=== PATIENT | female | born 1960 | race Caucasian/White ===

== ENCOUNTER 2020-07-05 04:04 | Emergency (ER) | payer MEDICAID ==
[2020-07-05] MEDS ORDERED: hydrOXYzine HCl 25 MG Tab PO ONE (04:05)
[2020-07-05] MEDS ORDERED: hydrOXYzine HCl 25 MG Tab ONE (04:29)
--- NOTE | 2020-07-05 04:32 | EDM.PDOC ---
ED HPI GENERAL MEDICAL PROBLEM - General Chief Complaint: Skin Complaint Stated Complaint: ITCHING ALL OVER? Time Seen by Provider: 07/05/20 04:28 Source of Information: Reports: Patient History Limitations: Reports: No Limitations - History of Present Illness INITIAL COMMENTS - FREE TEXT/NARRATIVE: over 1 month h/o itchy rash seen clinic has Derm appt in 2 weeks but can't wait can't sleep. - Related Data Allergies Allergy/AdvReac Type Severity Reaction Status Date / Time amoxicillin Allergy Rash Verified 07/05/20 04:22 Past Medical History Cardiovascular History: Reports: Hypertension Psychiatric History: Reports: Depression Dermatologic History: Reports: Eczema Social & Family History - Family History Family Medical History: No Pertinent Family History - Tobacco Use Tobacco Use Status *Q: Never Tobacco User Second Hand Smoke Exposure: No - Caffeine Use Caffeine Use: Reports: Coffee, Soda - Recreational Drug Use Recreational Drug Use: No ED ROS GENERAL - Review of Systems Review Of Systems: Comprehensive ROS is negative, except as noted in HPI. ED EXAM, SKIN/RASH Exam: See Below Exam Limited By: No Limitations General Appearance: Alert, WD/WN, Anxious, Mild Distress Ears: Hearing Grossly Normal Throat/Mouth: Normal Voice, No Airway Compromise Head: Atraumatic Neck: Non-Tender, Full Range of Motion Respiratory/Chest: No Respiratory Distress Cardiovascular: Regular Rate, Rhythm GI/Abdominal: Soft, Non-Tender (Female) Exam: Deferred Rectal (Female) Exam: Deferred Neurological: Alert, Oriented, Normal Cognition, Normal Gait, No Motor/Sensory Deficits Psychiatric: Anxious Skin: Rash Location, Skin: Upper Extremity, Right, Upper Extremity, Left Characteristics: Petechial Lymphatic: No Adenopathy Course - Vital Signs Last Recorded V/S: Last Vital Signs Temp 36.8 C 07/05/20 04:09 Pulse 87 07/05/20 04:09 Resp 19 07/05/20 04:09 BP 160/84 H 07/05/20 04:09 Pulse Ox 100 07/05/20 04:09 Departure - Departure Time of Disposition: 04:30 Disposition: Home, Self-Care 01 Condition: Good Clinical Impression: Chronic pruritic rash in adult - Discharge Information Additional Instructions: 1) follow up at clinic rx given; hydroxyzine 25mg bid to tid for itch x 12 Sepsis Event Note (ED) - Evaluation Sepsis Screening Result: No Definite Risk - Focused Exam Vital Signs: Vital Signs Temp Pulse Resp BP Pulse Ox 07/05/20 04:09 36.8 C 87 19 160/84 H 100
== END 2020-07-05 04:35 | disposition home or self-care (01) ==
LOC: DL.ED 04:04
DX: L29.9 Pruritus, unspecified (principal); I10 Essential (primary) hypertension; Z88.1 Allergy status to other antibiotic agents
CPT/HCPCS: 99282; A9270

== ENCOUNTER 2020-07-20 08:15 | Emergency (ER) | payer MEDICAID ==
--- NOTE | 2020-07-20 08:29 | EDM.PDOC ---
ED HPI GENERAL MEDICAL PROBLEM - General Chief Complaint: Skin Complaint Stated Complaint: SKIN RASH/PROBLEMS SLEEPING PROBLEMS Time Seen by Provider: 07/20/20 08:29 Source of Information: Reports: Patient, RN, RN Notes Reviewed History Limitations: Reports: No Limitations - History of Present Illness INITIAL COMMENTS - FREE TEXT/NARRATIVE: Patient is a 59-year-old female who presents to the ER with complaint of rash and itching for approximately 1 month or longer. States she is seen her primary care provider as well as dermatology. She saw dermatology last Wednesday. Was di agnosed with sensitive skin, was to stop using any kind of body wash, laundry soaps, etc. as described by her daughter pricing associate. She was prescribed triamcinolone, and states that has been helping with the itch quite a bit. She states new areas have been popping up on her skin that appear to be bug bites. She states she has been living with a friend since March, and is wondering if they have bedbugs in the house. States she has found bugs on her body twice. States she is having quite a bit of issues with sleeping due to the anxiety of the bugs as well as the itching. Patient also complains of pain, redness and swelling to the right lower first molar. Onset: Gradual, Unknown/Unsure - Related Data Allergies Allergy/AdvReac Type Severity Reaction Status Date / Time amoxicillin Allergy Rash Verified 07/20/20 08:29 Past Medical History Cardiovascular History: Reports: Hypertension Psychiatric History: Reports: Depression Dermatologic History: Reports: Eczema Social & Family History - Family History Family Medical History: No Pertinent Family History - Caffeine Use Caffeine Use: Reports: Coffee, Soda ED ROS GENERAL - Review of Systems Review Of Systems: Comprehensive ROS is negative, except as noted in HPI. ED EXAM, SKIN/RASH Exam: See Below Exam Limited By: No Limitations General Appearance: Alert, WD/WN, Anxious, Mild Distress Eye Exam: Bilateral Eye: EOMI, Normal Inspection Ears: Normal External Exam, Hearing Grossly Normal Nose: Normal Inspection Throat/Mouth: Normal Voice, No Airway Compromise, Inflammation (, Erythema, inflammation, right lower first molar) Head: Atraumatic, Normocephalic Neck: Normal Inspection, Supple, Non-Tender, Full Range of Motion Respiratory/Chest: No Respiratory Distress, Lungs Clear, Normal Breath Sounds, No Accessory Muscle Use, Chest Non-Tender Cardiovascular: Normal Peripheral Pulses Peripheral Pulses: 2+: Radial (L), Radial (R), Dorsalis Pedis (L), Dorsalis Pedis (R) GI/Abdominal: Normal Bowel Sounds, Soft, Non-Tender (Female) Exam: Deferred Rectal (Female) Exam: Deferred Back Exam: Normal Inspection, Full Range of Motion, NT Extremities: Normal Inspection, Normal Range of Motion, Non-Tender, No Pedal Edema, Normal Capillary Refill Neurological: Alert, Oriented, CN II-XII Intact, Normal Cognition, Normal Gait, Normal Reflexes, No Motor/Sensory Deficits Psychiatric: Anxious Skin: Warm, Dry, Intact, Normal Color, Erythema, Rash (Areas of rash to the abdomen and back, slightly raised, erythematous, urticarial), Other (Bug bite- like appearances in linear pattern on the left forearm, bites around the neck, and right arm) Location, Skin: Generalized Characteristics: Linear Lymphatic: No Adenopathy Course - Vital Signs Last Recorded V/S: Last Vital Signs Temp 98.6 F 07/20/20 08:26 Pulse 112 H 07/20/20 08:26 Resp 18 07/20/20 08:26 BP 152/80 H 07/20/20 08:32 Pulse Ox 100 07/20/20 08:26 - Orders/Labs/Meds Labs: Laboratory Tests 07/20/20 07/20/20 Range/Units 08:31 08:31 WBC 8.0 (5.0-10.0) 10^3/uL RBC 4.65 (4.2-5.4) 10^6/uL Hgb 14.8 (12.0-16.0) g/dL Hct 45.1 (37.0-47.0) % MCV 97.0 (80-100) fL MCH 31.8 (27.0-34.0) pg MCHC 32.8 L (33.0-35.0) g/dL Plt Count 374 (150-450) 10^3/uL Neut % (Auto) 53.1 (42.2-75.2) % Lymph % (Auto) 27.5 (20.5-50.1) % [place] % (Auto) 11.9 H (2-8) % Eos % (Auto) 6.7 H (1.0-3.0) % Baso % (Auto) 0.8 (0.0-1.0) % Sodium 137 (136-145) mmol/L Potassium 3.9 (3.5-5.1) mmol/L Chloride 102 (98-107) mmol/L Carbon Dioxide 32 (21-32) mmol/L Anion Gap 6.9 L (7-13) mEq/L BUN 21 H (7-18) mg/dL Creatinine 0.89 (0.55-1.02) mg/dL Est Cr Clr Drug Dosing 60.49 mL/min Estimated GFR (MDRD) > 60 BUN/Creatinine Ratio 23.6 (No establ ref range) Glucose 131 H (74-99) mg/dL Calcium 9.3 (8.5-10.1) mg/dL Phosphorus 3.1 (2.6-4.7) mg/dL Magnesium 2.2 (1.8-2.4) mg/dL Total Bilirubin 0.3 (0.2-1.0) mg/dL AST 19 (15-37) U/L ALT 24 (14-59) U/L Alkaline Phosphatase 128 H (46-116) U/L Total Protein 8.6 H (6.4-8.2) g/dL Albumin 3.8 (3.4-5.0) g/dL Globulin 4.8 Albumin/Globulin Ratio 0.8 Departure - Departure Time of Disposition: 09:16 Disposition: Home, Self-Care 01 Condition: Fair Clinical Impression: Pruritic rash, Abscessed tooth Bed bug bite Qualifiers: Encounter type: initial encounter Qualified Code(s): W57.XXXA - Bitten or stung by nonvenomous insect and other nonvenomous arthropods, initial encounter - Discharge Information *PRESCRIPTION DRUG MONITORING PROGRAM REVIEWED*: No *COPY OF PRESCRIPTION DRUG MONITORING REPORT IN PATIENT AGUILAR: No Instructions: Dental Abscess, [id number], Contact Dermatitis, [id number], Rash, Adult, [id number] Forms: ED Department Discharge Additional Instructions: Read information about eradication of bedbugs Continue using the hydroxyzine that was prescribed in the ER Continue using the topical cream that you were prescribed by dermatology Rx: Clindamycin for dental abscess Follow-up with your primary care provider next week regarding sleep issues Rx: Lorazepam, Hydroxizine Sepsis Event Note (ED) - Evaluation Sepsis Screening Result: No Definite Risk - Focused Exam Vital Signs: Vital Signs Temp Pulse Resp BP Pulse Ox 07/20/20 08:32 152/80 H 07/20/20 08:26 98.6 F 112 H 18 155/104 H 100
[2020-07-20 08:58] LABS: ANION GAP 6.9 mEq/L (7-13); CHLORIDE,CL 102 mmol/L (98-107); SODIUM,NA 137 mmol/L (136-145)
== END 2020-07-20 09:33 | disposition home or self-care (01) ==
LOC: DL.ED 08:15
DX: S40.861A Insect bite (nonvenomous) of right upper arm, initial encounter (principal); S10.96XA Insect bite of unspecified part of neck, initial encounter; L29.9 Pruritus, unspecified; K04.7 Periapical abscess without sinus; I10 Essential (primary) hypertension; Z88.0 Allergy status to penicillin; W57.XXXA Bitten or stung by nonvenomous insect and other nonvenomous arthropods, initial encounter
CPT/HCPCS: 36415; 80053; 83735; 84100; 85025; 99283

== ENCOUNTER 2021-07-19 19:20 | Inpatient (IN) | payer MEDICAID ==
--- NOTE | 2021-07-19 20:12 | CT ---
PROCEDURE INFORMATION: Exam: CT Head Without Contrast Exam date and time: 07/19/2021 7:41 PM Age: 60 years old Clinical indication: Other: Difficulty swallowing tremor TECHNIQUE: Imaging protocol: Computed tomography of the head without contrast. Radiation optimization: All CT scans at this facility use at least one of these dose optimization techniques: automated exposure control; mA and/or kV adjustment per patient size (includes targeted exams where dose is matched to clinical indication); or iterative reconstruction. COMPARISON: No relevant prior studies available. FINDINGS: Brain: Age-related atrophy and chronic white matter ischemic changes, with no evidence of an acute intracranial abnormality. No hemorrhage, mass effect or midline shift. Cerebral ventricles: No ventriculomegaly. Paranasal sinuses: Visualized sinuses are unremarkable. No fluid levels. Mastoid air cells: Visualized mastoid air cells are well aerated. Bones/joints: No acute fracture. Soft tissues: No acute changes IMPRESSION: 1. Age-related atrophy and chronic white matter ischemic changes, with no evidence of an acute intracranial abnormality. 2. No hemorrhage, mass effect or midline shift.
--- NOTE | 2021-07-19 20:12 | CR ---
PROCEDURE INFORMATION: Exam: XR Chest Exam date and time: 07/19/2021 7:47 PM Age: 60 years old Clinical indication: Other: Difficulty swallowing tremor TECHNIQUE: Imaging protocol: XR of the chest. Views: 2 views. COMPARISON: No relevant prior studies available. FINDINGS: Lungs: Unremarkable. No consolidation. Pleural spaces: Unremarkable. No pleural effusion. No pneumothorax. Heart/Mediastinum: Unremarkable. No cardiomegaly. Bones/joints: Unremarkable. IMPRESSION: No acute findings.
[2021-07-19 20:21] LABS: ANION GAP 11.9 mEq/L (7-13)
[2021-07-19] MEDS ORDERED: Potassium Chloride 20 MEQ in Premix Bag 1 BAG IV ONE (21:18)
--- NOTE | 2021-07-19 21:19 | EDM.PDOC ---
ED HPI GENERAL MEDICAL PROBLEM - General Chief Complaint: Neurological Problem Stated Complaint: DIFFICULTY SWALLOWING Time Seen by Provider: 07/19/21 19:40 Source of Information: Reports: Patient History Limitations: Reports: No Limitations - History of Present Illness INITIAL COMMENTS - FREE TEXT/NARRATIVE: ED with mom with report of difficulty swallowing tonight at supper. Has had problems with in past just seemed to be worse attempting to swallow potassium. Drooling. On antipsycotic, Recent change in medications. No fever. More facial twitching recently. Recent follow up with psychiatry. - Related Data Allergies Allergy/AdvReac Type Severity Reaction Status Date / Time amoxicillin Allergy Rash Verified 07/19/21 19:51 Home Meds: Home Meds Potassium Chloride [Klor-Con M20] 1 tab PO DAILY 07/19/21 [History] Past Medical History - Past Health History Medical/Surgical History: Denies Medical/Surgical History Cardiovascular History: Reports: Hypertension Genitourinary History: Reports: None Psychiatric History: Reports: Depression Other Psychiatric History: tardive dyskensia Dermatologic History: Reports: Eczema - Infectious Disease History Infectious Disease History: Reports: None Social & Family History - Family History Family Medical History: No Pertinent Family History - Tobacco Use Tobacco Use Status *Q: Never Tobacco User - Caffeine Use Caffeine Use: Reports: Coffee - Recreational Drug Use Recreational Drug Use: No ED ROS GENERAL - Review of Systems Review Of Systems: Comprehensive ROS is negative, except as noted in HPI. ED EXAM, NEURO - Physical Exam Exam: See Below Exam Limited By: No Limitations General Appearance: Alert, Mild Distress Eye Exam: Bilateral Eye: EOMI Ears: Normal External Exam, Hearing Grossly Normal Nose: Normal Inspection Throat/Mouth: Dysphagia, Other (Facial twitching constant tongue rolling, drooling) Head Exam: Atraumatic, Normocephalic Neck: Normal Inspection, Full Range of Motion Respiratory/Chest: No Respiratory Distress, Lungs Clear, Normal Breath Sounds Cardiovascular: Regular Rate, Rhythm GI/Abdominal: Normal Bowel Sounds, Soft Neurological: Alert, Normal Plantar Flexion, Normal Reflexes, Oriented x 3, Tremor Psychiatric: Flat Affect Skin Exam: Warm, Dry, Intact Course - Vital Signs Last Recorded V/S: Last Vital Signs Temp 99.5 F 07/24/21 12:00 Pulse 91 07/24/21 12:00 Resp 18 07/24/21 12:00 BP 141/82 H 07/24/21 12:00 Pulse Ox 96 07/24/21 12:00 - Orders/Labs/Meds Labs: Laboratory Tests 07/19/21 07/19/21 07/19/21 Range/Units 19:35 19:45 19:45 WBC 9.1 (5.0-10.0) 10^3/uL RBC 5.05 (4.2-5.4) 10^6/uL Hgb 15.5 (12.0-16.0) g/dL Hct 48.2 H (37.0-47.0) % MCV 95.4 (80-100) fL MCH 30.7 (27.0-34.0) pg MCHC 32.2 L (33.0-35.0) g/dL Plt Count 218 D (150-450) 10^3/uL Neut % (Auto) 51.7 (42.2-75.2) % Lymph % (Auto) 26.4 (20.5-50.1) % [place] % (Auto) 16.3 H (2-8) % Eos % (Auto) 5.4 H (1.0-3.0) % Baso % (Auto) 0.2 (0.0-1.0) % PT 11.1 (9.0-12.0) SEC INR 1.1 (0.9-1.2) Sodium (136-145) mmol/L Potassium (3.5-5.1) mmol/L Chloride (98-107) mmol/L Carbon Dioxide (21-32) mmol/L Anion Gap (7-13) mEq/L BUN (7-18) mg/dL Creatinine (0.55-1.02) mg/dL Est Cr Clr Drug Dosing mL/min Estimated GFR (MDRD) BUN/Creatinine Ratio (No establ ref range) Glucose (70-99) mg/dL POC Glucose 102 H (70-99) mg/dL Lactic Acid (0.4-2.0) mmol/L Calcium (8.5-10.1) mg/dL Magnesium (1.8-2.4) mg/dL Total Bilirubin (0.2-1.0) mg/dL AST (15-37) U/L ALT (14-59) U/L Alkaline Phosphatase (46-116) U/L Total Protein (6.4-8.2) g/dL Albumin (3.4-5.0) g/dL Globulin Albumin/Globulin Ratio TSH, Ultra Sensitive (0.36-3.74) uIU/mL Urine Color (YELLOW) Urine Appearance (CLEAR) Urine pH (5.0-9.0) Ur Specific [place] (1.005-1.030) Urine Protein (NEGATIVE) Urine Glucose (UA) (NEGATIVE) Urine Ketones (NEGATIVE) Urine Occult Blood (NEGATIVE) Urine Nitrite (NEGATIVE) Urine Bilirubin (NEGATIVE) Urine Urobilinogen (0.2-1.0) mg/dL Ur Leukocyte Esterase (NEGATIVE) Urine RBC (0-5) /HPF Urine WBC (0-5/HPF) /HPF Ur Epithelial Cells (NOT SEEN) /HPF Urine Bacteria (0-FEW/HPF) /HPF 07/19/21 07/19/21 07/19/21 Range/Units 19:45 19:45 21:45 WBC (5.0-10.0) 10^3/uL RBC (4.2-5.4) 10^6/uL Hgb (12.0-16.0) g/dL Hct (37.0-47.0) % MCV (80-100) fL MCH (27.0-34.0) pg MCHC (33.0-35.0) g/dL Plt Count (150-450) 10^3/uL Neut % (Auto) (42.2-75.2) % Lymph % (Auto) (20.5-50.1) % [place] % (Auto) (2-8) % Eos % (Auto) (1.0-3.0) % Baso % (Auto) (0.0-1.0) % PT (9.0-12.0) SEC INR (0.9-1.2) Sodium 143 (136-145) mmol/L Potassium 2.9 L (3.5-5.1) mmol/L Chloride 101 (98-107) mmol/L Carbon Dioxide 33 H (21-32) mmol/L Anion Gap 11.9 (7-13) mEq/L BUN 24 H (7-18) mg/dL Creatinine 1.08 H (0.55-1.02) mg/dL Est Cr Clr Drug Dosing 49.22 mL/min Estimated GFR (MDRD) 52 BUN/Creatinine Ratio 22.2 (No establ ref range) Glucose 94 (70-99) mg/dL POC Glucose (70-99) mg/dL Lactic Acid 1.2 (0.4-2.0) mmol/L Calcium 8.7 (8.5-10.1) mg/dL Magnesium 1.9 (1.8-2.4) mg/dL Total Bilirubin 0.6 (0.2-1.0) mg/dL AST 37 (15-37) U/L ALT 35 (14-59) U/L Alkaline Phosphatase 82 (46-116) U/L Total Protein 8.2 (6.4-8.2) g/dL Albumin 2.9 L (3.4-5.0) g/dL Globulin 5.3 Albumin/Globulin Ratio 0.55 TSH, Ultra Sensitive 1.30 (0.36-3.74) uIU/mL Urine Color Dark yellow (YELLOW) Urine Appearance Turbid (CLEAR) Urine pH 6.0 (5.0-9.0) Ur Specific [place] 1.025 (1.005-1.030) Urine Protein 100 H (NEGATIVE) Urine Glucose (UA) Negative (NEGATIVE) Urine Ketones 15 H (NEGATIVE) Urine Occult Blood Large H (NEGATIVE) Urine Nitrite Negative (NEGATIVE) Urine Bilirubin Large H (NEGATIVE) Urine Urobilinogen 1.0 (0.2-1.0) mg/dL Ur Leukocyte Esterase Large H (NEGATIVE) Urine RBC 5-10 H (0-5) /HPF Urine WBC Packed H (0-5/HPF) /HPF Ur Epithelial Cells Moderate H (NOT SEEN) /HPF Urine Bacteria Many H (0-FEW/HPF) /HPF Meds: Medications Discontinued Medications Generic Name Dose Route Start Last Admin Trade Name Freq PRN Reason Stop Dose Admin Cefdinir Confirm 07/20/21 00:15 07/21/21 22:11 Cefdinir 250 Mg/5 Ml Susp 100 Ml Bottle Administered 07/20/21 00:16 Not Given Dose 5,000 mg .ROUTE .STK-MED ONE Diphenhydramine HCl 25 mg 07/20/21 13:14 07/20/21 13:28 Diphenhydramine 50 Mg/Ml Sdv IVPUSH 07/20/21 13:15 25 mg ONETIME ONE Administration Diphenhydramine HCl 25 mg 12/15/21 19:42 Diphenhydramine 25 Mg Tab PO BEDTIME PRN Sleep Enoxaparin Sodium 40 mg 07/20/21 09:00 07/24/21 08:27 Enoxaparin 40 Mg/0.4 Ml Syringe SUBCUT 40 mg DAILY ANTONETTE Administration Potassium Chloride 20 meq/ 100 mls @ 50 mls/hr 07/19/21 21:18 07/19/21 21:52 Premix IV 07/19/21 23:17 50 mls/hr ONETIME ONE Administration Sodium Chloride 500 mls @ 200 mls/hr 07/19/21 21:30 07/19/21 21:52 Normal Saline IV 200 mls/hr .BOLUS ANTONETTE Administration Ceftriaxone Sodium 2 gm/ 100 mls @ 200 mls/hr 07/20/21 07:00 Sodium Chloride IV Q24H ANTONETTE Potassium Chloride/Sodium Chloride 1,000 mls @ 100 mls/hr 07/20/21 01:45 07/20/21 22:53 Normal Saline With 20 Meq Kcl IV 100 mls/hr ASDIRECTED ANTONETTE Administration Ceftriaxone Sodium 2 gm/ 100 mls @ 200 mls/hr 07/20/21 01:52 07/20/21 20:54 Sodium Chloride IV 200 mls/hr BEDTIME ANTONETTE Administration Potassium Chloride/Dextrose/Sod Cl 1,000 mls @ 75 mls/hr 07/21/21 07:15 07/22/21 11:50 D5 1/2 Ns W/ 10 Meq/L Kcl IV 75 mls/hr ASDIRECTED ANTONETTE Administration Ceftriaxone Sodium 2 gm/ 100 mls @ 200 mls/hr 07/21/21 21:00 07/22/21 21:44 Sodium Chloride IV 200 mls/hr 2100 ANTONETTE Administration Ceftriaxone Sodium 1 gm/ 50 mls @ 100 mls/hr 07/23/21 21:00 Sodium Chloride IV Q24H ANTONETTE Lorazepam 0.5 mg 07/20/21 10:19 07/20/21 10:30 Lorazepam 2 Mg/Ml Sdv IVPUSH 07/20/21 10:20 0.5 mg ONETIME ONE Administration Lorazepam 0.5 mg 07/21/21 08:38 07/21/21 09:01 Lorazepam 2 Mg/Ml Sdv IVPUSH 07/21/21 08:39 0.5 mg ONETIME ONE Administration Potassium Chloride 40 meq 07/24/21 10:00 07/24/21 11:13 Potassium Chloride 10 Meq Tab.Er PO 07/24/21 10:01 40 meq ONETIME ONE Administration - Re-Assessments/Exams Free Text/Narrative Re-Assessment/Exam: [facility] neurology [employer] 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 CT reviewed. Noimmediate neurology services indicated. No immediate need for transfer to [facility] care. Departure - Departure Time of Disposition: 01:35 (Dr Tapia) Disposition: Admitted As Inpatient 65 Condition: Undetermined Clinical Impression: Tardive dyskinesia, Hypokalemia Dysphagia Qualifiers: Dysphagia type: oral phase Qualified Code(s): R13.11 - Dysphagia, oral phase UTI (urinary tract infection) Qualifiers: Urinary tract infection type: acute cystitis Hematuria presence: without hematuria Qualified Code(s): N30.00 - Acute cystitis without hematuria - Discharge Information *PRESCRIPTION DRUG MONITORING PROGRAM REVIEWED*: No *COPY OF PRESCRIPTION DRUG MONITORING REPORT IN PATIENT AGUILAR: No
[2021-07-19] MEDS ORDERED: Sodium Chloride 0.9% 500 ML IV SCH (21:30)
[2021-07-20] MEDS ORDERED: Cefdinir 250 MG/5 ML Susp 100 ML Bottle ONE (00:15)
--- NOTE | 2021-07-20 01:48 | PCM.HP ---
H&P History of Present Illness - General Date of Service: 07/20/21 Admit Problem/Dx: Admission Diagnosis/Problem Admission Diagnosis/Problem UTI, Urinary tract infectious disease Source of Information: Patient History Limitations: Reports: Other (mental impairment) - History of Present Illness Initial Comments - Free Text/Narative: Patient is a 60-year-old female with an apparent past medical history of psychiatric disorder requiring long-term antipsychotic therapy with a diagnosis of tardive dyskinesia comes in with worsening tremor, tongue movements and dysphagia. When I went down to see patient her mother brought her into the emergency department was not there and I was unable to contact her over the phone. History is mostly obtained through patient to is alert and orientated although appears to have limited insight into her medical conditions. According to patient she has had movement issues including her pill-rolling tremor with her right hand for at least the last 4 to 5 months. States it has been progressively getting worse. States that today she noticed worsening of her tongue movements to the point where she was unable to take any p.o. liquids i ncluding any medications. Patient is pleasant, in no acute respiratory or any distress. Upon review of systems she denies fevers, back pain, chills, abdominal pain, nausea or vomiting. Patient denies any shortness of breath, chest pains or pressures. Does describe some burning with urination that has been occurring for the last several days. When patient first arrived emergency department she was hemodynamically stable, had a temperature of 5.4, blood pressure 135/86, heart rate 94, was static initially 87 on room air and with 1 L of oxygen alternating between that and room air she was 94 to 95%. A head CT was obtained which showed no acute findings chronic changes. Chest x-ray showed no acute findings. Laboratory findings also include WBC of 9.1, hemoglobin 15.5, platelet count 218. Sodium 143, potassium 2.9, creatinine 1.08, BUN 24, glucose 102. AST 87, ALT 35, TSH 1.30. Urinalysis concerning for infection positive leukocyte esterase, packed RBCs, negative nitrites. The provider in the emergency room and had a discussion with on-call neurologist who indicated they believe this is not a acute neurologic issue recommended treatment for her UTI. Patient was attempted to be given a dose of cefdinir, IV fluids and IV potassium repletion request is made for admission. Again review of systems is negative except those listed above. I try to contact multiple family members to obtain POA status, baseline mental status, past medical history questions with the patient and his alert orientated but is able to minimally answer questions on her past medical history. These attempts were unsuccessful. - Related Data Allergies/Adverse Reactions: Allergies Allergy/AdvReac Type Severity Reaction Status Date / Time amoxicillin Allergy Rash Verified 07/19/21 19:51 Home Medications: Home Meds Potassium Chloride [Klor-Con M20] 1 tab PO DAILY 07/19/21 [History] buPROPion HCL [Wellbutrin Xl] 150 mg PO QAM 07/19/21 [History] Mirtazapine 15 mg PO BEDTIME 07/20/21 [History] Valbenazine Tosylate [Ingrezza] 40 mg PO BEDTIME 07/20/21 [History] Past Medical History - Past Health History Medical/Surgical History: Denies Medical/Surgical History Cardiovascular History: Reports: Hypertension Genitourinary History: Reports: None Psychiatric History: Reports: Depression Other Psychiatric History: tardive dyskensia Dermatologic History: Reports: Eczema - Infectious Disease History Infectious Disease History: Reports: None Social & Family History - Family History Family Medical History: No Pertinent Family History - Tobacco Use Tobacco Use Status *Q: Never Tobacco User - Caffeine Use Caffeine Use: Reports: Coffee - Recreational Drug Use Recreational Drug Use: No H&P Review of Systems - Review of Systems: Review Of Systems: Comprehensive ROS is negative, except as noted in HPI. Exam - Exam Exam: See Below - Vital Signs Vital Signs: Last Vital Signs Temp 100.4 F 07/19/21 19:35 Pulse 94 07/19/21 20:46 Resp 14 07/19/21 20:53 BP 135/86 07/19/21 20:46 Pulse Ox 94 L 07/19/21 20:53 Weight: 175 lb - Exam Quality Assessment: Supplemental Oxygen General: Alert, Oriented, Other (cognitive impariment ) HEENT: Conjunctiva Clear Neck: Supple, Trachea Midline Lungs: Clear to Auscultation, Normal Respiratory Effort, Other (no inspiratory wheezing) Cardiovascular: Regular Rate, Regular Rhythm GI/Abdominal Exam: Normal Bowel Sounds, Soft, Non-Tender, Other (no CVA tender ness) Back Exam: Normal Inspection, Full Range of Motion Extremities: Normal Inspection Peripheral Pulses: 2+: Radial (L), Radial (R) Neurological: Cranial Nerves Intact, Other (abnormal increased tone throughout - resting tremor of right hand - significant tongue movements ) Neuro Extensive - Mental Status: Alert, Oriented x3 Psychiatric: Alert, Other (flat affect) - Patient Data Lab Results Last 24 hrs: Laboratory Results - last 24 hr 07/19/21 07/19/21 07/19/21 Range/Units 19:35 19:45 19:45 WBC 9.1 (5.0-10.0) 10^3/uL RBC 5.05 (4.2-5.4) 10^6/uL Hgb 15.5 (12.0-16.0) g/dL Hct 48.2 H (37.0-47.0) % MCV 95.4 (80-100) fL MCH 30.7 (27.0-34.0) pg MCHC 32.2 L (33.0-35.0) g/dL Plt Count 218 D (150-450) 10^3/uL Neut % (Auto) 51.7 (42.2-75.2) % Lymph % (Auto) 26.4 (20.5-50.1) % Hale % (Auto) 16.3 H (2-8) % Eos % (Auto) 5.4 H (1.0-3.0) % Baso % (Auto) 0.2 (0.0-1.0) % PT 11.1 (9.0-12.0) SEC INR 1.1 (0.9-1.2) Sodium (136-145) mmol/L Potassium (3.5-5.1) mmol/L Chloride (98-107) mmol/L Carbon Dioxide (21-32) mmol/L Anion Gap (7-13) mEq/L BUN (7-18) mg/dL Creatinine (0.55-1.02) mg/dL Est Cr Clr Drug Dosing mL/min Estimated GFR (MDRD) BUN/Creatinine Ratio (No establ ref range) Glucose (70-99) mg/dL POC Glucose 102 H (70-99) mg/dL Lactic Acid (0.4-2.0) mmol/L Calcium (8.5-10.1) mg/dL Magnesium (1.8-2.4) mg/dL Total Bilirubin (0.2-1.0) mg/dL AST (15-37) U/L ALT (14-59) U/L Alkaline Phosphatase (46-116) U/L Total Protein (6.4-8.2) g/dL Albumin (3.4-5.0) g/dL Globulin Albumin/Globulin Ratio TSH, Ultra Sensitive (0.36-3.74) uIU/mL Urine Color (YELLOW) Urine Appearance (CLEAR) Urine pH (5.0-9.0) Ur Specific Holmes (1.005-1.030) Urine Protein (NEGATIVE) Urine Glucose (UA) (NEGATIVE) Urine Ketones (NEGATIVE) Urine Occult Blood (NEGATIVE) Urine Nitrite (NEGATIVE) Urine Bilirubin (NEGATIVE) Urine Urobilinogen (0.2-1.0) mg/dL Ur Leukocyte Esterase (NEGATIVE) Urine RBC (0-5) /HPF Urine WBC (0-5/HPF) /HPF Ur Epithelial Cells (NOT SEEN) /HPF Urine Bacteria (0-FEW/HPF) /HPF SARS CoV-2 RNA Rapid MARTINA (NEGATIVE) 07/19/21 07/19/21 07/19/21 Range/Units 19:45 19:45 21:45 WBC (5.0-10.0) 10^3/uL RBC (4.2-5.4) 10^6/uL Hgb (12.0-16.0) g/dL Hct (37.0-47.0) % MCV (80-100) fL MCH (27.0-34.0) pg MCHC (33.0-35.0) g/dL Plt Count (150-450) 10^3/uL Neut % (Auto) (42.2-75.2) % Lymph % (Auto) (20.5-50.1) % Hale % (Auto) (2-8) % Eos % (Auto) (1.0-3.0) % Baso % (Auto) (0.0-1.0) % PT (9.0-12.0) SEC INR (0.9-1.2) Sodium 143 (136-145) mmol/L Potassium 2.9 L (3.5-5.1) mmol/L Chloride 101 (98-107) mmol/L Carbon Dioxide 33 H (21-32) mmol/L Anion Gap 11.9 (7-13) mEq/L BUN 24 H (7-18) mg/dL Creatinine 1.08 H (0.55-1.02) mg/dL Est Cr Clr Drug Dosing 49.22 mL/min Estimated GFR (MDRD) 52 BUN/Creatinine Ratio 22.2 (No establ ref range) Glucose 94 (70-99) mg/dL POC Glucose (70-99) mg/dL Lactic Acid 1.2 (0.4-2.0) mmol/L Calcium 8.7 (8.5-10.1) mg/dL Magnesium 1.9 (1.8-2.4) mg/dL Total Bilirubin 0.6 (0.2-1.0) mg/dL AST 37 (15-37) U/L ALT 35 (14-59) U/L Alkaline Phosphatase 82 (46-116) U/L Total Protein 8.2 (6.4-8.2) g/dL Albumin 2.9 L (3.4-5.0) g/dL Globulin 5.3 Albumin/Globulin Ratio 0.55 TSH, Ultra Sensitive 1.30 (0.36-3.74) uIU/mL Urine Color Dark yellow (YELLOW) Urine Appearance Turbid (CLEAR) Urine pH 6.0 (5.0-9.0) Ur Specific Holmes 1.025 (1.005-1.030) Urine Protein 100 H (NEGATIVE) Urine Glucose (UA) Negative (NEGATIVE) Urine Ketones 15 H (NEGATIVE) Urine Occult Blood Large H (NEGATIVE) Urine Nitrite Negative (NEGATIVE) Urine Bilirubin Large H (NEGATIVE) Urine Urobilinogen 1.0 (0.2-1.0) mg/dL Ur Leukocyte Esterase Large H (NEGATIVE) Urine RBC 5-10 H (0-5) /HPF Urine WBC Packed H (0-5/HPF) /HPF Ur Epithelial Cells Moderate H (NOT SEEN) /HPF Urine Bacteria Many H (0-FEW/HPF) /HPF SARS CoV-2 RNA Rapid MARTINA (NEGATIVE) 07/20/21 Range/Units 01:15 WBC (5.0-10.0) 10^3/uL RBC (4.2-5.4) 10^6/uL Hgb (12.0-16.0) g/dL Hct (37.0-47.0) % MCV (80-100) fL MCH (27.0-34.0) pg MCHC (33.0-35.0) g/dL Plt Count (150-450) 10^3/uL Neut % (Auto) (42.2-75.2) % Lymph % (Auto) (20.5-50.1) % Hale % (Auto) (2-8) % Eos % (Auto) (1.0-3.0) % Baso % (Auto) (0.0-1.0) % PT (9.0-12.0) SEC INR (0.9-1.2) Sodium (136-145) mmol/L Potassium (3.5-5.1) mmol/L Chloride (98-107) mmol/L Carbon Dioxide (21-32) mmol/L Anion Gap (7-13) mEq/L BUN (7-18) mg/dL Creatinine (0.55-1.02) mg/dL Est Cr Clr Drug Dosing mL/min Estimated GFR (MDRD) BUN/Creatinine Ratio (No establ ref range) Glucose (70-99) mg/dL POC Glucose (70-99) mg/dL Lactic Acid (0.4-2.0) mmol/L Calcium (8.5-10.1) mg/dL Magnesium (1.8-2.4) mg/dL Total Bilirubin (0.2-1.0) mg/dL AST (15-37) U/L ALT (14-59) U/L Alkaline Phosphatase (46-116) U/L Total Protein (6.4-8.2) g/dL Albumin (3.4-5.0) g/dL Globulin Albumin/Globulin Ratio TSH, Ultra Sensitive (0.36-3.74) uIU/mL Urine Color (YELLOW) Urine Appearance (CLEAR) Urine pH (5.0-9.0) Ur Specific Holmes (1.005-1.030) Urine Protein (NEGATIVE) Urine Glucose (UA) (NEGATIVE) Urine Ketones (NEGATIVE) Urine Occult Blood (NEGATIVE) Urine Nitrite (NEGATIVE) Urine Bilirubin (NEGATIVE) Urine Urobilinogen (0.2-1.0) mg/dL Ur Leukocyte Esterase (NEGATIVE) Urine RBC (0-5) /HPF Urine WBC (0-5/HPF) /HPF Ur Epithelial Cells (NOT SEEN) /HPF Urine Bacteria (0-FEW/HPF) /HPF SARS CoV-2 RNA Rapid MARTINA Negative (NEGATIVE) Result Diagrams: 07/19/21 19:45 07/19/21 19:45 - Problem List (1) Tardive dyskinesia SNOMED Code(s): 576093263 ICD Code: G24.01 - DRUG INDUCED SUBACUTE DYSKINESIA Status: Acute Current Visit: Yes (2) Dysphagia SNOMED Code(s): 62084702, 538244359 ICD Code: R13.10 - DYSPHAGIA, UNSPECIFIED Status: Acute Current Visit: Yes (3) UTI (urinary tract infection) SNOMED Code(s): 39464268 ICD Code: N39.0 - URINARY TRACT INFECTION, SITE NOT SPECIFIED Status: Acute Current Visit: Yes Problem List Initiated/Reviewed/Updated: Yes Orders Last 24hrs: Active Orders 24 hr Category Date Time Status Admission Diagnosis [ADT] Stat ADT 07/20/21 00:55 Ordered Admission Status [Patient Status] [ADT] Routine ADT 07/20/21 00:55 Active Oxygen Therapy [RC] PRN Care 07/20/21 01:40 Ordered Up With Assistance [RC] ASDIRECTED Care 07/20/21 01:40 Ordered VTE/DVT Education [RC] PER UNIT ROUTINE Care 07/20/21 01:40 Ordered Vital Signs [RC] Q4H Care 07/20/21 01:40 Ordered Nothing per Oral Now Diet [DIET] Diet 07/20/21 Breakfast Ordered BASIC METABOLIC PANEL,BMP [CHEM] Routine Lab 07/20/21 10:00 Ordered CULTURE BLOOD [BC] Stat Lab 07/19/21 19:45 Received CULTURE URINE [RM] Stat Lab 07/19/21 21:45 Received Enoxaparin [Lovenox] Med 07/20/21 09:00 Ordered 40 mg SUBCUT DAILY Sodium Chloride 0.9% [Normal Saline] 500 ml Med 07/19/21 21:30 Active IV .BOLUS Sodium Chloride 0.9% with KCl 20 mEq @ 100 mL/Hr (1000 Med 07/20/21 01:45 Ordered mL) NS + KCl 20mEq/L [Normal Saline with 20 mEq KCl] 1,000 ml IV ASDIRECTED cefTRIAXone [Rocephin] 2 gm Med 07/20/21 07:00 Ordered Sodium Chloride 0.9% [Normal Saline AdvBag] 100 ml IV Q24H Resuscitation Status Routine Resus Stat 07/20/21 01:40 Ordered Medication Orders Enoxaparin Sodium (Enoxaparin 40 Mg/0.4 Ml Syringe) 40 mg SUBCUT DAILY [facility] Sodium Chloride (Normal Saline) 500 mls @ 200 mls/hr IV .BOLUS ANTONETTE Last Admin: 07/19/21 21:52 Dose: 200 mls/hr Documented by: LIANG Ceftriaxone Sodium 2 gm/ (Sodium Chloride) 100 mls @ 200 mls/hr IV Q24H [facility] Potassium Chloride/Sodium Chloride (Normal Saline With 20 Meq Kcl) 1,000 mls @ 100 mls/hr IV ASDIRECTED [facility] Assessment/Plan Comment:: Patient is a 60-year-old female with a history of known tardive dyskinesia, cognitive impairment who comes in with worsening tongue movements and dysphagia, inability to maintain oral intake and findings concerning for urinary tract infection. #Tardive dyskinesia/dysphagia -Patient's family was not in the emergency department when I came to evaluate patient and I was unable to contact them via phone but according to EMS notes patient has a long history of known tardive dyskinesia secondary antipsychotic use - classic findings on exam -Patient had worsening of her tardive dyskinesia over the last several days including worsening tongue movements the point where she is unable to take any oral food, liquids or medications -no respiratory symptoms, no inspiratory wh eezing/stridor -still able to manage most secretions -Patient is apparently on valbenazine for treatment, she is unsure of her other medications but mirtazapine and Wellbutrin are listed -We will hold medications for now given patient's able to take p.o. I want to confirm medications with family/psychiatry -As for treatment will have a discussion with on-call psychiatry tomorrow about possible further treatments although patient is already on a VMAT inhibitor -Potential for utilizing benzodiazepines, anticholinergics -? If urinary tract infection is causing a worsening of her symptoms -Patient would benefit from speech therapy evaluation although we do not have a speech therapist in until Wednesday #Urinary tract infection -Had a temperature of 100.4 in the emergency department, denies fevers or chills at home, denies back pain, describes some burning with urination, normal WBC upon admission, urinalysis suspicious for infection -Emergency department already ordered blood cultures will await results, urine culture -Given patient's inability to take any p.o. medications will give dose of IV ceftriaxone 2 g every 24hr -treatment duration approximately 5 days #Hypokalemia -Likely secondary to above/dehydration -IV fluid resuscitation, received IV potassium, recheck in a.m. [id number] mL an hour normal saline KCl Electrolyteshypokalemia see above Dietn.p.o. for now
[2021-07-20] MEDS: NS + KCl 20mEq/L 1,000 ML IV SCH ×3 (02:12→22:53)
[2021-07-20] MEDS: cefTRIAXone 2 GM in Sodium Chloride 0.9% 100 ML IV SCH ×2 (02:13→20:54)
[2021-07-20] MEDS ORDERED: cefTRIAXone 2 GM in Sodium Chloride 0.9% 100 ML IV SCH (07:00)
[2021-07-20] MEDS: Enoxaparin 40 MG/0.4 ML Syringe SUBCUT SCH ×2 (09:37→10:36)
[2021-07-20] MEDS ORDERED: LORazepam 2 MG/ML SDV IVPUSH ONE (10:19)
[2021-07-20 10:53] LABS: ANION GAP 12.2 mEq/L (7-13); CHLORIDE,CL 105 mmol/L (98-107); SODIUM,NA 145 mmol/L (136-145)
[2021-07-20] MEDS ORDERED: diphenhydrAMINE 50 MG/ML SDV IVPUSH ONE (13:14)
--- NOTE | 2021-07-21 06:37 | PCM.PN ---
- General Info Date of Service: 07/21/21 Admission Dx/Problem (Free Text): Admission Diagnosis/Problem Admission Diagnosis/Problem UTI, Urinary tract infectious disease Subjective Update: Patient appeared to be able to articulate better today. Patient stated that she thought her tongue movements were maybe slightly improved and she was able to handle small 30 mL of water this a.m. Again states that she still is having significant dystonia. States that the IV Ativan seem to help her tongue movements more than the IV Benadryl. Patient denies any fevers, chills, abdominal pain, nausea or vomiting. Remainder review systems negative except those listed above. - Patient Data Vitals - Most Recent: Last Vital Signs Temp 99.1 F 07/21/21 05:00 Pulse 80 07/21/21 05:00 Resp 18 07/21/21 05:00 BP 146/87 H 07/21/21 05:00 Pulse Ox 96 07/21/21 05:00 Weight - Most Recent: 170 lb 3.2 oz I&O - Last 24 Hours: Intake & Output 07/20/21 07/20/21 07/21/21 14:59 22:59 06:59 Intake Total 360 Output Total 300 475 525 Balance 60 -475 -525 Lab Results Last 24 Hours: Laboratory Results - last 24 hr 07/20/21 Range/Units 10:15 Sodium 145 (136-145) mmol/L Potassium 3.2 L (3.5-5.1) mmol/L Chloride 105 (98-107) mmol/L Carbon Dioxide 31 (21-32) mmol/L Anion Gap 12.2 (7-13) mEq/L BUN 19 H (7-18) mg/dL Creatinine 0.74 (0.55-1.02) mg/dL Est Cr Clr Drug Dosing 71.84 mL/min Estimated GFR (MDRD) > 60 Glucose 70 (70-99) mg/dL Calcium 7.9 L (8.5-10.1) mg/dL Liu Results Last 24 Hours: Microbiology 07/19/21 19:45 Aerobic Blood Culture - Preliminary Blood - Arm, Left NO GROWTH AFTER 1 DAY Anaerobic Blood Culture - Preliminary NO GROWTH AFTER 1 DAY Med Orders - Current: Current Medications Enoxaparin Sodium (Enoxaparin 40 Mg/0.4 Ml Syringe) 40 mg SUBCUT DAILY [facility] Last Admin: 07/20/21 10:36 Dose: 40 mg Documented by: Sodium Chloride (Normal Saline) 500 mls @ 200 mls/hr IV .BOLUS ANTONETTE Last Admin: 07/19/21 21:52 Dose: 200 mls/hr Documented by: Potassium Chloride/Sodium Chloride (Normal Saline With 20 Meq Kcl) 1,000 mls @ 100 mls/hr IV ASDIRECTED [facility] Last Admin: 07/20/21 22:53 Dose: 100 mls/hr Documented by: Ceftriaxone Sodium 2 gm/ (Sodium Chloride) 100 mls @ 200 mls/hr IV BEDTIME ANTONETTE Last Admin: 07/20/21 20:54 Dose: 200 mls/hr Documented by: Discontinued Medications Cefdinir (Cefdinir 250 Mg/5 Ml Susp 100 Ml Bottle) Confirm Administered Dose 5,0 00 mg .ROUTE .STK-MED ONE Stop: 07/20/21 00:16 Diphenhydramine HCl (Diphenhydramine 50 Mg/Ml Sdv) 25 mg IVPUSH ONETIME ONE Stop: 07/20/21 13:15 Last Admin: 07/20/21 13:28 Dose: 25 mg Documented by: Potassium Chloride 20 meq/ (Premix) 100 mls @ 50 mls/hr IV ONETIME ONE Stop: 07/19/21 23:17 Last Admin: 07/19/21 21:52 Dose: 50 mls/hr Documented by: Ceftriaxone Sodium 2 gm/ (Sodium Chloride) 100 mls @ 200 mls/hr IV Q24H ANTONETTE Lorazepam (Lorazepam 2 Mg/Ml Sdv) 0.5 mg IVPUSH ONETIME ONE Stop: 07/20/21 10:20 Last Admin: 07/20/21 10:30 Dose: 0.5 mg Documented by: - Exam General: Alert, Oriented HEENT: Other (repetitive tardive dyskinesia movements of tongue and mouth) Neck: Supple, Trachea Midline Lungs: Clear to Auscultation, Normal Respiratory Effort Cardiovascular: Regular Rate, Regular Rhythm GI/Abdominal Exam: Normal Bowel Sounds, Soft, Non-Tender Back Exam: Normal Inspection Extremities: Normal Inspection Skin: Warm, Dry Neurological: No New Focal Deficit Psy/Mental Status: Other (flat affect) - Patient Data Lab Results Last 24 hrs: Laboratory Results - last 24 hr 07/20/21 Range/Units 10:15 Sodium 145 (136-145) mmol/L Potassium 3.2 L (3.5-5.1) mmol/L Chloride 105 (98-107) mmol/L Carbon Dioxide 31 (21-32) mmol/L Anion Gap 12.2 (7-13) mEq/L BUN 19 H (7-18) mg/dL Creatinine 0.74 (0.55-1.02) mg/dL Est Cr Clr Drug Dosing 71.84 mL/min Estimated GFR (MDRD) > 60 Glucose 70 (70-99) mg/dL Calcium 7.9 L (8.5-10.1) mg/dL Result Diagrams: 07/19/21 19:45 07/21/21 05:35 Liu Results Last 24 hrs: Microbiology 07/19/21 19:45 Aerobic Blood Culture - Preliminary Blood - Arm, Left NO GROWTH AFTER 1 DAY Anaerobic Blood Culture - Preliminary NO GROWTH AFTER 1 DAY Sepsis Event Note - Evaluation Sepsis Screening Result: No Definite Risk - Focused Exam Vital Signs: Vital Signs Temp Pulse Resp BP Pulse Ox 07/21/21 05:00 99.1 F 80 18 146/87 H 96 07/20/21 23:47 98.7 F 81 18 141/78 H 94 L 07/20/21 20:00 98.5 F 82 18 146/80 H 94 L - Problem List & Annotations (1) Tardive dyskinesia SNOMED Code(s): 967972580 Code(s): G24.01 - DRUG INDUCED SUBACUTE DYSKINESIA Status: Acute Current Visit: Yes (2) Dysphagia SNOMED Code(s): 02604701, 865845899 Code(s): R13.10 - DYSPHAGIA, UNSPECIFIED Status: Acute Current Visit: Yes (3) UTI (urinary tract infection) SNOMED Code(s): 09534522 Code(s): N39.0 - URINARY TRACT INFECTION, SITE NOT SPECIFIED Status: Acute Current Visit: Yes - Problem List Review Problem List Initiated/Reviewed/Updated: Yes - My Orders Last 24 Hours: My Active Orders 07/20/21 Breakfast Nothing per Oral Now Diet [DIET] 07/20/21 09:00 Enoxaparin [Lovenox] 40 mg SUBCUT DAILY 07/21/21 05:35 BASIC METABOLIC PANEL,BMP [CHEM] AM - Plan Plan:: Patient is a 60-year-old female with a history of known tardive dyskinesia, cognitive impairment who comes in with worsening tongue movements and dysphagia, inability to maintain oral intake and findings concerning for urinary tract infection. # Tardive dyskinesia/dysphagia -Patient had worsening of her tardive dyskinesia over the last several days including worsening tongue movements the point where she is unable to take any oral food, liquids or medications -no respiratory symptoms, no inspiratory wheezing/stridor -still able to manage most secretions -Patient is apparently on valbenazine for treatment, she is unsure of her other medications but mirtazapine and Wellbutrin are listed - attempting to obtain records from psychiatry provider today -We will hold medications for now given patient's able to take p.o. I want to confirm medications with family/psychiatry -As for treatment will have a discussion with on-call psychiatry tomorrow about possible further treatments although patient is already on a VMAT inhibitor -Utilized IV Ativan, IV Benadryl yesterday, minimal improvement with IV Ativan -? If urinary tract infection is causing a worsening of her symptoms -Patient would benefit from speech therapy evaluation although we do not have a speech therapist # Urinary tract infection -Had a temperature of 100.4 in the emergency department, denies fevers or chills at home, denies back pain, describes some burning with urination, normal WBC upon admission, urinalysis suspicious for infection -Blood cultures negative for growth, urine culture showed next hayden -Given patient's inability to take any p.o. medications will give dose of IV ceftriaxone 2 g every 24hr -treatment duration approximately 5 days # Hypokalemia -Resolved Fluidstransitioned to D5 half NS with 10 of KCl for maintenance fluids at 75 mL an hour Electrolyteswnl Dietn.p.o. for now
[2021-07-21 06:47] LABS: ANION GAP 11.9 mEq/L (7-13); CHLORIDE,CL 106 mmol/L (98-107); SODIUM,NA 143 mmol/L (136-145)
[2021-07-21] MEDS: D5 1/2 NS w/ 10 mEq/L KCl 1,000 ML IV SCH ×2 (07:34→21:55)
[2021-07-21] MEDS ORDERED: LORazepam 2 MG/ML SDV IVPUSH ONE (08:38)
[2021-07-21] MEDS: Enoxaparin 40 MG/0.4 ML Syringe SUBCUT SCH (09:01)
--- NOTE | 2021-07-21 16:12 | PCM.SN.2 ---
- Free Text/Narrative Note: Was able to obtain most recent psychiatric note. Per note plan for her major depressive disorder was to discontinue Rexulti on 07-20-21. Patient's Trintellix was also discontinued on 07-17-21. Patient was started on Wellbutrin 150 mg p.o. daily on 07-18-21. Her Ingrezza was apparently being denied by insurance for her tardive dyskinesia. Attempted to call her sick provider today and left a message to discuss with her tomorrow. We will also discuss with on- call psychiatrist if unable to get a hold of patient's local psych provider.
[2021-07-21] MEDS: cefTRIAXone 2 GM in Sodium Chloride 0.9% 100 ML IV SCH (21:25)
--- NOTE | 2021-07-22 05:16 | PCM.PN ---
- General Info Date of Service: 07/22/21 Admission Dx/Problem (Free Text): Admission Diagnosis/Problem Admission Diagnosis/Problem UTI, Urinary tract infectious disease Subjective Update: Patient appeared to be able to articulate better today. Patient's tongue moveme nts and dystonia are also improved this a.m. Patient's affect is still flat but overall improved and she has more expression today. Remainder review systems negative except those listed above. - Patient Data Vitals - Most Recent: Last Vital Signs Temp 99.2 F 07/22/21 00:00 Pulse 82 07/22/21 00:00 Resp 18 07/22/21 00:00 BP 140/78 07/22/21 00:00 Pulse Ox 95 07/22/21 00:00 Weight - Most Recent: 170 lb 3.2 oz I&O - Last 24 Hours: Intake & Output 07/21/21 07/21/21 07/22/21 14:59 22:59 06:59 Output Total 1000 1250 Balance -1000 -1250 Lab Results Last 24 Hours: Laboratory Results - last 24 hr 07/21/21 Range/Units 05:35 Sodium 143 (136-145) mmol/L Potassium 3.9 (3.5-5.1) mmol/L Chloride 106 (98-107) mmol/L Carbon Dioxide 29 (21-32) mmol/L Anion Gap 11.9 (7-13) mEq/L BUN 12 (7-18) mg/dL Creatinine 0.67 (0.55-1.02) mg/dL Est Cr Clr Drug Dosing 79.34 mL/min Estimated GFR (MDRD) > 60 Glucose 64 L (70-99) mg/dL Calcium 7.7 L (8.5-10.1) mg/dL Liu Results Last 24 Hours: Microbiology 07/19/21 19:45 Aerobic Blood Culture - Preliminary Blood - Arm, Left NO GROWTH AFTER 2 DAYS Anaerobic Blood Culture - Preliminary NO GROWTH AFTER 2 DAYS 07/19/21 21:45 Urine Culture - Preliminary Urine, Voided MIXED HAYDEN SUGGESTIVE OF CONTAMINATION. Med Orders - Current: Current Medications Enoxaparin Sodium (Enoxaparin 40 Mg/0.4 Ml Syringe) 40 mg SUBCUT DAILY [facility] Last Admin: 07/21/21 09:01 Dose: 40 mg Documented by: Potassium Chloride/Dextrose/Sod Cl (D5 1/2 Ns W/ 10 Meq/L Kcl) 1,000 mls @ 75 mls/hr IV ASDIRECTED [facility] Last Admin: 07/21/21 21:55 Dose: 75 mls/hr Documented by: Ceftriaxone Sodium 2 gm/ (Sodium Chloride) 100 mls @ 200 mls/hr IV 2100 [facility] Last Admin: 07/21/21 21:25 Dose: 200 mls/hr Documented by: Discontinued Medications Cefdinir (Cefdinir 250 Mg/5 Ml Susp 100 Ml Bottle) Confirm Administered Dose 5,000 mg .ROUTE .STK-MED ONE Stop: 07/20/21 00:16 Last Admin: 07/21/21 22:11 Dose: Not Given Documented by: Diphenhydramine HCl (Diphenhydramine 50 Mg/Ml Sdv) 25 mg IVPUSH ONETIME ONE Stop: 07/20/21 13:15 Last Admin: 07/20/21 13:28 Dose: 25 mg Documented by: Potassium Chloride 20 meq/ (Premix) 100 mls @ 50 mls/hr IV ONETIME ONE Stop: 07/19/21 23:17 Last Admin: 07/19/21 21:52 Dose: 50 mls/hr Documented by: Sodium Chloride (Normal Saline) 500 mls @ 200 mls/hr IV .BOLUS [facility] Last Admin: 07/19/21 21:52 Dose: 200 mls/hr Documented by: Ceftriaxone Sodium 2 gm/ (Sodium Chloride) 100 mls @ 200 mls/hr IV Q24H [facility] Potassium Chloride/Sodium Chloride (Normal Saline With 20 Meq Kcl) 1,000 mls @ 100 mls/hr IV ASDIRECTED [facility] Last Admin: 07/20/21 22:53 Dose: 100 mls/hr Documented by: Ceftriaxone Sodium 2 gm/ (Sodium Chloride) 100 mls @ 200 mls/hr IV BEDTIME [facility] Last Admin: 07/20/21 20:54 Dose: 200 mls/hr Documented by: Lorazepam (Lorazepam 2 Mg/Ml Sdv) 0.5 mg IVPUSH ONETIME ONE Stop: 07/20/21 10:20 Last Admin: 07/20/21 10:30 Dose: 0.5 mg Documented by: Lorazepam (Lorazepam 2 Mg/Ml Sdv) 0.5 mg IVPUSH ONETIME ONE Stop: 07/21/21 08:39 Last Admin: 07/21/21 09:01 Dose: 0.5 mg Documented by: - Exam General: Alert, Oriented HEENT: Pupils Equal, Other (obvious findings of tardive dyskinesia - repetative non-voluntary tounge movements ) Neck: Supple Lungs: Clear to Auscultation, Normal Respiratory Effort Cardiovascular: Regular Rate, Regular Rhythm GI/Abdominal Exam: Normal Bowel Sounds, Soft, Non-Tender Back Exam: Normal Inspection Extremities: Normal Inspection Peripheral Pulses: 2+: Radial (L), Radial (R) Skin: Warm Neurological: No New Focal Deficit Psy/Mental Status: Alert - Patient Data Lab Results Last 24 hrs: Laboratory Results - last 24 hr 07/21/21 Range/Units 05:35 Sodium 143 (136-145) mmol/L Potassium 3.9 (3.5-5.1) mmol/L Chloride 106 (98-107) mmol/L Carbon Dioxide 29 (21-32) mmol/L Anion Gap 11.9 (7-13) mEq/L BUN 12 (7-18) mg/dL Creatinine 0.67 (0.55-1.02) mg/dL Est Cr Clr Drug Dosing 79.34 mL/min Estimated GFR (MDRD) > 60 Glucose 64 L (70-99) mg/dL Calcium 7.7 L (8.5-10.1) mg/dL Result Diagrams: 07/19/21 19:45 07/21/21 05:35 Liu Results Last 24 hrs: Microbiology 07/19/21 19:45 Aerobic Blood Culture - Preliminary Blood - Arm, Left NO GROWTH AFTER 2 DAYS Anaerobic Blood Culture - Preliminary NO GROWTH AFTER 2 DAYS 07/19/21 21:45 Urine Culture - Preliminary Urine, Voided MIXED HAYDEN SUGGESTIVE OF CONTAMINATION. Sepsis Event Note - Evaluation Sepsis Screening Result: No Definite Risk - Focused Exam Vital Signs: Vital Signs Temp Pulse Resp BP Pulse Ox 07/22/21 00:00 99.2 F 82 18 140/78 95 07/21/21 20:32 98.8 F 80 20 132/71 96 - Problem List & Annotations (1) Tardive dyskinesia SNOMED Code(s): 117728822 Code(s): G24.01 - DRUG INDUCED SUBACUTE DYSKINESIA Status: Acute Current Visit: Yes (2) Dysphagia SNOMED Code(s): 92887870, 527955531 Code(s): R13.10 - DYSPHAGIA, UNSPECIFIED Status: Acute Current Visit: Yes (3) UTI (urinary tract infection) SNOMED Code(s): 49089036 Code(s): N39.0 - URINARY TRACT INFECTION, SITE NOT SPECIFIED Status: Acute Current Visit: Yes - Problem List Review Problem List Initiated/Reviewed/Updated: Yes - My Orders Last 24 Hours: My Active Orders 07/21/21 07:15 D5 1/2 NS w/ 10 mEq/L KCl 1,000 ml IV ASDIRECTED 07/21/21 21:00 cefTRIAXone [Rocephin] 2 gm Sodium Chloride 0.9% [Normal Saline AdvBag] 100 ml IV 2100 07/22/21 Breakfast Clear Liquid Diet [DIET] - Plan Plan:: Patient is a 60-year-old female with a history of known tardive dyskinesia, cognitive impairment who comes in with worsening tongue movements and dysphagia, inability to maintain oral intake and findings concerning for urinary tract infection. # Tardive dyskinesia/dysphagia -Patient had worsening of her tardive dyskinesia over the last several days including worsening tongue movements the point where she was unable to take any oral food, liquids or medications -no respiratory symptoms, no inspiratory wheezing/stridor - able to manage secretions -Atypical psychotics? - Was started in Rexulti in October. I had initially thought her tardive dyskinesia was longstanding but talking to her MACHINE [employer]ER who manages her psychiatric medications this is more recent in the last 6 months. -Was able to obtain most recent psychiatric note. Per note plan for her major depressive disorder was to discontinue Rexulti on 07-20-21. Patient's Trintellix was also discontinued on 07-17-21. Patient was started on Wellbutrin 150 mg p.o. daily on 07-18-21. Her Ingrezza was apparently being denied by insurance for her tardive dyskinesia. -As for treatment options are limited for severe TD -Utilized IV Ativan, IV Benadryl - minimal improvement with IV Ativan -? If urinary tract infection is causing a worsening of her symptoms - see below for treatment -Patient would benefit from speech therapy evaluation although we do not have a speech therapist -Patient has had significant improvement over the last 24 hours, continue to hold off of any p.o. medications, advance diet as tolerated # Urinary tract infection -Had a temperature of 100.4 in the emergency department, denies fevers or chills at home, denies back pain, describes some burning with urination, normal WBC upon admission, urinalysis suspicious for infection -Blood cultures negative for growth, urine culture showed mixed hayden -Given patient's inability to take any p.o. medications will give dose of IV ceftriaxone 2 g every 24hr - transition to orals when able - treatment duration approximately 5 days # Hypokalemia -Resolved FluidsD5 half NS with 10 of KCl for maintenance fluids at 75 mL an hour Electrolyteswnl Dietfull liquid diet, advance as tolerated Dispogiven patient's improvement possible discharge tomorrow pending oral intake - will need to follow up with Kathleen Jain MACHINE [facility] at human services post discharge
[2021-07-22] MEDS: Enoxaparin 40 MG/0.4 ML Syringe SUBCUT SCH (08:55)
[2021-07-22] MEDS: D5 1/2 NS w/ 10 mEq/L KCl 1,000 ML IV SCH (11:50)
[2021-07-22] MEDS: cefTRIAXone 2 GM in Sodium Chloride 0.9% 100 ML IV SCH (21:44)
[2021-07-23] MEDS: Enoxaparin 40 MG/0.4 ML Syringe SUBCUT SCH (10:17)
--- NOTE | 2021-07-23 12:36 | PCM.PN ---
- General Info Date of Service: 07/23/21 Subjective Update: patient's speech is clearing up, Patient's tongue movements and dystonia are also improved this a.m. has mild to mod tremor of r ue no fever overnight, no associated abdominal or urinary complaints - Review of Systems General: Reports: Weakness. Denies: Fever Pulmonary: Denies: Shortness of Breath Cardiovascular: Denies: Chest Pain, Edema Gastrointestinal: Denies: Abdominal Pain Neurological: Reports: Tremors. Denies: Confusion - Patient Data Vitals - Most Recent: Last Vital Signs Temp 98.7 F 07/23/21 11:58 Pulse 88 07/23/21 11:58 Resp 18 07/23/21 11:58 BP 126/65 07/23/21 11:58 Pulse Ox 97 07/23/21 11:58 Weight - Most Recent: 170 lb 3.2 oz Liu Results Last 24 Hours: Microbiology 07/19/21 19:45 Aerobic Blood Culture - Preliminary Blood - Arm, Left NO GROWTH AFTER 3 DAYS Anaerobic Blood Culture - Preliminary NO GROWTH AFTER 3 DAYS 07/19/21 21:45 Urine Culture - Final Urine, Voided Med Orders - Current: Current Medications Enoxaparin Sodium (Enoxaparin 40 Mg/0.4 Ml Syringe) 40 mg SUBCUT DAILY [facility] Last Admin: 07/23/21 10:17 Dose: 40 mg Documented by: Ceftriaxone Sodium 2 gm/ (Sodium Chloride) 100 mls @ 200 mls/hr IV 2100 [facility] Last Admin: 07/22/21 21:44 Dose: 200 mls/hr Documented by: Discontinued Medications Cefdinir (Cefdinir 250 Mg/5 Ml Susp 100 Ml Bottle) Confirm Administered Dose 5,000 mg .ROUTE .STK-MED ONE Stop: 07/20/21 00:16 Last Admin: 07/21/21 22:11 Dose: Not Given Documented by: Diphenhydramine HCl (Diphenhydramine 50 Mg/Ml Sdv) 25 mg IVPUSH ONETIME ONE Stop: 07/20/21 13:15 Last Admin: 07/20/21 13:28 Dose: 25 mg Documented by: Potassium Chloride 20 meq/ (Premix) 100 mls @ 50 mls/hr IV ONETIME ONE Stop: 07/19/21 23:17 Last Admin: 07/19/21 21:52 Dose: 50 mls/hr Documented by: Sodium Chloride (Normal Saline) 500 mls @ 200 mls/hr IV .BOLUS [facility] Last Admin: 07/19/21 21:52 Dose: 200 mls/hr Documented by: Ceftriaxone Sodium 2 gm/ (Sodium Chloride) 100 mls @ 200 mls/hr IV Q24H [facility] Potassium Chloride/Sodium Chloride (Normal Saline With 20 Meq Kcl) 1,000 mls @ 100 mls/hr IV ASDIRECTED [facility] Last Admin: 07/20/21 22:53 Dose: 100 mls/hr Documented by: Ceftriaxone Sodium 2 gm/ (Sodium Chloride) 100 mls @ 200 mls/hr IV BEDTIME [facility] Last Admin: 07/20/21 20:54 Dose: 200 mls/hr Documented by: Potassium Chloride/Dextrose/Sod Cl (D5 1/2 Ns W/ 10 Meq/L Kcl) 1,000 mls @ 75 mls/hr IV ASDIRECTED [facility] Last Admin: 07/22/21 11:50 Dose: 75 mls/hr Documented by: Lorazepam (Lorazepam 2 Mg/Ml Sdv) 0.5 mg IVPUSH ONETIME ONE Stop: 07/20/21 10:20 Last Admin: 07/20/21 10:30 Dose: 0.5 mg Documented by: Lorazepam (Lorazepam 2 Mg/Ml Sdv) 0.5 mg IVPUSH ONETIME ONE Stop: 07/21/21 08:39 Last Admin: 07/21/21 09:01 Dose: 0.5 mg Documented by: - Exam General: Alert, Oriented Neck: Supple Lungs: Clear to Auscultation, Normal Respiratory Effort Cardiovascular: Regular Rate, Regular Rhythm GI/Abdominal Exam: Normal Bowel Sounds, Soft, Non-Tender Extremities: No Pedal Edema Neurological: No New Focal Deficit, Other (tremor of r ue, involuntar movement of mouth) Psy/Mental Status: Alert, Normal Affect, Normal Mood - Patient Data Result Diagrams: 07/19/21 19:45 07/21/21 05:35 Liu Results Last 24 hrs: Microbiology 07/19/21 19:45 Aerobic Blood Culture - Preliminary Blood - Arm, Left NO GROWTH AFTER 3 DAYS Anaerobic Blood Culture - Preliminary NO GROWTH AFTER 3 DAYS 07/19/21 21:45 Urine Culture - Final Urine, Voided Sepsis Event Note - Evaluation Sepsis Screening Result: No Definite Risk - Focused Exam Vital Signs: Vital Signs Temp Pulse Resp BP Pulse Ox 07/23/21 11:58 98.7 F 88 18 126/65 97 07/23/21 07:39 98.6 F 86 18 136/67 97 - Problem List Review Problem List Initiated/Reviewed/Updated: Yes - My Orders Last 24 Hours: My Active Orders 07/23/21 09:05 Consult to Physical Therapy [PT Evaluation and Treatment] [CONS] Routine 07/23/21 09:06 Consult to Occupational Therapy [OT Evaluation and Treatment] [CONS] Routine 07/24/21 05:15 BASIC METABOLIC PANEL,BMP [CHEM] AM CBC WITH AUTO DIFF [HEME] AM - Plan Plan:: Patient is a 60-year-old female with a history of known tardive dyskinesia, cognitive impairment who comes in with worsening tongue movements and dysphagia, inability to maintain oral intake and findings concerning for urinary tract infection. # Tardive dyskinesia/dysphagia -Patient had worsening of her tardive dyskinesia over the last several days including worsening tongue movements the point where she was unable to take any oral food, liquids or medications antipsychotic, antidepressant meds discontinued symptoms are improving will need close f/up with psychiatry to reevaluate treatment regimen # Urinary tract infection -Had a temperature of 100.4 in the emergency department, denies fevers or chills at home, denies back pain, described some burning with urination, normal WBC upon admission, urinalysis suspicious for infection but culture appeared contaminant started IV ceftriaxone 2 g every 24hr - decrease dose to 1 gm daily - will stop abx soon - treatment duration approximately 5 days # Hypokalemia -Resolved recheck in AM Fluidsstop IVF Diet as tolerated
[2021-07-23] MEDS ORDERED: diphenhydrAMINE 25 MG Tab PO PRN (19:42)
[2021-07-23] MEDS ORDERED: cefTRIAXone 1 GM in Sodium Chloride 0.9% 50 ML IV SCH (21:00)
[2021-07-24 06:59] LABS: ANION GAP 12.1 mEq/L (7-13); CHLORIDE,CL 104 mmol/L (98-107); SODIUM,NA 143 mmol/L (136-145)
[2021-07-24] MEDS: Enoxaparin 40 MG/0.4 ML Syringe SUBCUT SCH (08:27)
[2021-07-24] MEDS ORDERED: Potassium Chloride 10 MEQ Tab.ER PO ONE (10:00)
--- NOTE | 2021-07-24 10:04 | PCM.DCSUM1 ---
Discharge Summary - Hospital Course Free Text/Narrative:: Plan:: Patient is a 60-year-old female with a history of known tardive dyskinesia, cognitive impairment who comes in with worsening tongue movements and dysphagia, inability to maintain oral intake and findings concerning for urinary tract infection. # Tardive dyskinesia/dysphagia -Patient had worsening of her tardive dyskinesia over the last several days including worsening tongue movements the point where she was unable to take any oral food, liquids or medications antipsychotic, antidepressant meds discontinued symptoms are improving will need close f/up with psychiatry to reevaluate treatment regimen # Urinary tract infection -Had a temperature of 100.4 in the emergency department, denies fevers or chills at home, denies back pain, described some burning with urination, normal WBC upon admission, urinalysis suspicious for infection but culture appeared contaminant started IV ceftriaxone - finished treatment # Hypokalemia resume potassium supplement follow periodically Diagnosis: Stroke: No - Discharge Data Discharge Date: 07/24/21 Discharge Disposition: Home, Self-Care 01 Condition: Stable - Referral to Home Health Primary Care Physician: PCP None - Patient Summary/Data Consults: Consultations 07/23/21 09:05 Consult to Physical Therapy [PT Evaluation and Treatment] [CONS] Routine 07/23/21 09:06 Consult to Occupational Therapy [OT Evaluation and Treatment] [CONS] Routine - Patient Instructions Diet: Heart Healthy Diet Activity: As Tolerated - Discharge Plan *PRESCRIPTION DRUG MONITORING PROGRAM REVIEWED*: Not Applicable *COPY OF PRESCRIPTION DRUG MONITORING REPORT IN PATIENT AGUILAR: Not Applicable Home Medications: Home Meds Potassium Chloride [Klor-Con M20] 1 tab PO DAILY 07/19/21 [History] Oxygen Therapy Mode: Room Air Forms: ED Department Discharge Referrals: PCP,None [Primary Care Provider] - - Discharge Summary/Plan Comment DC Time >30 min.: No Total # of Minutes for Discharge Time: 20 min - General Info Date of Service: 07/24/21 Functional Status: Reports: Pain Controlled, Tolerating Diet, Ambulating - Review of Systems General: Denies: Fever, Weakness Pulmonary: Denies: Shortness of Breath Gastrointestinal: Denies: Abdominal Pain Neurological: Reports: Tremors. Denies: Confusion Psychiatric: Denies: Confusion - Patient Data Vitals - Most Recent: Last Vital Signs Temp 99.2 F 07/24/21 07:49 Pulse 85 07/24/21 07:49 Resp 18 07/24/21 07:49 BP 120/70 07/24/21 07:49 Pulse Ox 96 07/24/21 07:49 Weight - Most Recent: 170 lb 3.2 oz I&O - Last 24 hours: Intake & Output 07/23/21 07/24/21 07/24/21 22:59 06:59 14:59 Intake Total 250 200 Balance 250 200 Lab Results - Last 24 hrs: Laboratory Results - last 24 hr 07/24/21 07/24/21 Range/Units 06:29 06:29 WBC 6.0 (5.0-10.0) 10^3/uL RBC 4.98 (4.2-5.4) 10^6/uL Hgb 15.1 (12.0-16.0) g/dL Hct 47.3 H (37.0-47.0) % MCV 95.0 (80-100) fL MCH 30.3 (27.0-34.0) pg MCHC 31.9 L (33.0-35.0) g/dL Plt Count 208 (150-450) 10^3/uL Neut % (Auto) 52.0 (42.2-75.2) % Lymph % (Auto) 25.7 (20.5-50.1) % Tift % (Auto) 12.4 H (2-8) % Eos % (Auto) 9.4 H (1.0-3.0) % Baso % (Auto) 0.5 (0.0-1.0) % Sodium 143 (136-145) mmol/L Potassium 3.1 L (3.5-5.1) mmol/L Chloride 104 (98-107) mmol/L Carbon Dioxide 30 (21-32) mmol/L Anion Gap 12.1 (7-13) mEq/L BUN 5 L (7-18) mg/dL Creatinine 0.73 (0.55-1.02) mg/dL Est Cr Clr Drug Dosing 72.82 mL/min Estimated GFR (MDRD) > 60 Glucose 94 (70-99) mg/dL Calcium 8.3 L (8.5-10.1) mg/dL TOMMY Results - Last 24 hrs: Microbiology 07/19/21 19:45 Aerobic Blood Culture - Preliminary Blood - Arm, Left NO GROWTH AFTER 4 DAYS Anaerobic Blood Culture - Preliminary NO GROWTH AFTER 4 DAYS Med Orders - Current: Current Medications Diphenhydramine HCl (Diphenhydramine 25 Mg Tab) 25 mg PO BEDTIME PRN PRN Reason: Sleep Enoxaparin Sodium (Enoxaparin 40 Mg/0.4 Ml Syringe) 40 mg SUBCUT DAILY [facility] Last Admin: 07/24/21 08:27 Dose: 40 mg Documented by: Potassium Chloride (Potassium Chloride 10 Meq Tab.Er) 40 meq PO ONETIME ONE Stop: 07/24/21 10:01 Discontinued Medications Cefdinir (Cefdinir 250 Mg/5 Ml Susp 100 Ml Bottle) Confirm Administered Dose 5,000 mg .ROUTE .STK-MED ONE Stop: 07/20/21 00:16 Last Admin: 07/21/21 22:11 Dose: Not Given Documented by: Diphenhydramine HCl (Diphenhydramine 50 Mg/Ml Sdv) 25 mg IVPUSH ONETIME ONE Stop: 07/20/21 13:15 Last Admin: 07/20/21 13:28 Dose: 25 mg Documented by: Potassium Chloride 20 meq/ (Premix) 100 mls @ 50 mls/hr IV ONETIME ONE Stop: 07/19/21 23:17 Last Admin: 07/19/21 21:52 Dose: 50 mls/hr Documented by: Sodium Chloride (Normal Saline) 500 mls @ 200 mls/hr IV .BOLUS [facility] Last Admin: 07/19/21 21:52 Dose: 200 mls/hr Documented by: Ceftriaxone Sodium 2 gm/ (Sodium Chloride) 100 mls @ 200 mls/hr IV Q24H [facility] Potassium Chloride/Sodium Chloride (Normal Saline With 20 Meq Kcl) 1,000 mls @ 100 mls/hr IV ASDIRECTED [facility] Last Admin: 07/20/21 22:53 Dose: 100 mls/hr Documented by: Ceftriaxone Sodium 2 gm/ (Sodium Chloride) 100 mls @ 200 mls/hr IV BEDTIME [facility] Last Admin: 07/20/21 20:54 Dose: 200 mls/hr Documented by: Potassium Chloride/Dextrose/Sod Cl (D5 1/2 Ns W/ 10 Meq/L Kcl) 1,000 mls @ 75 mls/hr IV ASDIRECTED [facility] Last Admin: 07/22/21 11:50 Dose: 75 mls/hr Documented by: Ceftriaxone Sodium 2 gm/ (Sodium Chloride) 100 mls @ 200 mls/hr IV 2100 [facility] Last Admin: 07/22/21 21:44 Dose: 200 mls/hr Documented by: Ceftriaxone Sodium 1 gm/ (Sodium Chloride) 50 mls @ 100 mls/hr IV Q24H [facility] Lorazepam (Lorazepam 2 Mg/Ml Sdv) 0.5 mg IVPUSH ONETIME ONE Stop: 07/20/21 10:20 Last Admin: 07/20/21 10:30 Dose: 0.5 mg Documented by: Lorazepam (Lorazepam 2 Mg/Ml Sdv) 0.5 mg IVPUSH ONETIME ONE Stop: 07/21/21 08:39 Last Admin: 07/21/21 09:01 Dose: 0.5 mg Documented by: - Exam General: Reports: Alert, Oriented Neck: Reports: Supple Lungs: Reports: Clear to Auscultation, Normal Respiratory Effort Cardiovascular: Reports: Regular Rate, Regular Rhythm Extremities: No Pedal Edema Skin: Reports: Warm, Dry, Intact Neurological: Reports: No New Focal Deficit, Other (tremor) Psy/Mental Status: Reports: Alert, Normal Affect. Denies: Agitated
== END 2021-07-24 11:50 | disposition home or self-care (01) | DRG 92 ==
LOC: DL.ED 19:20 → DL.MS 07-20 00:55
PROVIDERS: ADMIT Internal Medicine; ATTEND Internal Medicine
DX: G24.01 Drug induced subacute dyskinesia (principal); N39.0 Urinary tract infection, site not specified; E87.6 Hypokalemia; R13.10 Dysphagia, unspecified; I10 Essential (primary) hypertension; F32.A Depression, unspecified; G31.84 Mild cognitive impairment of uncertain or unknown etiology; T43.505A Adverse effect of unspecified antipsychotics and neuroleptics, initial encounter; Z88.1 Allergy status to other antibiotic agents; Z79.899 Other long term (current) drug therapy; Z20.822 Contact with and (suspected) exposure to COVID-19
CPT/HCPCS: 36415; 70450; 71046; 80048; 80053; 81001; 82947; 83605; 83735; 84443; 85025; 85610; 87040; 87086; 97165-GO; 99222; 99232; 99239; A9270-GY; J0696; J1200; J1650; J2060; J3480; J7040; U0002